=== PATIENT | female | born 1995 | race Caucasian/White ===

== ENCOUNTER 2021-06-23 12:00 | Observation (INO) | payer MEDICARE, MEDICAID ==
[2021-06-23] VITALS (9 sets, daily range): BP systolic 95–159; BP diastolic 73–91; PULSE 74–98; TEMP 98.3–98.6
[~2021-06-23] VITALS: Ht 154.9 cm; Wt 117.3 kg
[2021-06-23] MEDS ORDERED: PRIL40 PO (12:24)
[2021-06-23] MEDS ORDERED: LEVOTHYROXIN (12:24)
[2021-06-23] MEDS ORDERED: INDERAL 20MG20 MG PO (12:24)
[2021-06-23] MEDS ORDERED: WELLBUTRIN SR100 M1 PO (12:24)
[2021-06-23] MEDS ORDERED: AMBIEN 10MG10 MG PO (12:25)
[2021-06-23] MEDS ORDERED: ATARAX50 MG PO (12:25)
[2021-06-23] MEDS ORDERED: PROAIR HFA0.09 MG/AC IH (12:33)
--- NOTE | 2021-06-23 13:00 | NUR ---
Patient arrived to room 350 with family. Alert and oriented x 3. Patient oriented to room. Initial and assessment complete. Patient denies pain at this time. IV started to right hand x2 attempts. Patient tolerated well. Denies further needs at this time.
--- NOTE | 2021-06-23 19:15 | NUR ---
PT TO ROOM 222 FROM PACU VIA BED. FAMILY AT BEDSIDE. PT ALERT AND ORIENTED X4, DROWSY FROM ANESTHESIA. POST OF VS STRATED. ASSESSMENT COMPLETED AND PLAN OF CARE EXPLAINED TO PT. 2035: CALLED FOR NEW ORDERS. SEE PHYSICAN NOTIFICATION. 2053: CALLED FOR ERCP ORDERS. SEE PHYSICAN NOTIFICATION. PT UNDATED ON PLAN OF CARE AND PROCEDURE TOMORROW AT 1230 WITH . QUESTIONS ANSWERED. 0150: AT BEDSIDE TO ASSESS PT. NO NEW ORDERS AT THIS TIME
[2021-06-24] VITALS (11 sets, daily range): BP systolic 116–134; BP diastolic 60–89; PULSE 78–800; TEMP 97.6–99
[2021-06-24] MEDS ORDERED: MOTRIN 600600 MG/TAB PO (01:11)
[2021-06-24] MEDS ORDERED: NORCO 325 MG-51 TAB PO (01:11)
[2021-06-24] MEDS ORDERED: CIPRO 500MG TA500 MG PO (02:06)
[2021-06-24] MEDS ORDERED: FLAGYL500 MG PO (02:06)
[2021-06-24 07:02] LABS: BASO % 0.2 % (0.0-2.0); GRAN # 12.7 (1.4-6.5); GRAN % 84.7 % (42.2-75.2); LYMPH # 1.5 (1.2-3.4); LYMPH % 10.3 % (20.0-51.0); MEAN CELL VOLUME 87 fl (80.0-100.0); MEAN CORPUSCULAR HEMOGLOBIN 29 pg (27.0-31.0); MEAN CORPUSCULAR HGB CONC 33 g/dl (33.0-37.0); MEAN PLATELET VOLUME 9.6 fl (7.4-10.4); MONO # 0.7 (0.1-0.6); MONO % 4.5 % (1.7-9.3); PLATELET COUNT 350 K/mm3 (130-400); RED BLOOD COUNT 4.19 M/mm3 (4.10-5.30); REDCELL DISTRIBUTION WIDTH-CV 13.1 % (11.5-14.5)
[2021-06-24 07:05] LABS: HEMATOCRIT 36.3 % (37.0-47.0)
[2021-06-24 07:15] LABS: ALBUMIN 3.5 gm/dL (3.5-5.0); BILIRUBIN,TOTAL 0.8 mg/dL (0.0-1.0); CALCIUM 8.4 mg/dL (8.4-10.2); CREATININE, serum 0.55 (0.52-1.25); POTASSIUM 4.3 mmol/L (3.4-5.0); TOTAL PROTEIN 6.8 gm/dL (6.4-8.2)
--- NOTE | 2021-06-24 14:08 | NUR ---
STEVEN SALINAS FROM [facility] CAME TO GET PT. PT. IN STABLE CONDITION WHEN LEFT. WILL WAIT FOR RETURN
--- NOTE | 2021-06-24 15:22 | NUR ---
RECEIVED PT. BACK FROM STEVEN SALINAS FROM [facility] AT 1455. PT. IN STABLE CONDITION BUT CRYING DUE TO PAIN. PAIN MEDICATION GIVEN (SEE EMAR). PT. NOW RESTING IN BED. WILL MONITOR PT. PER PROTOCOL THEN GIVE DR. OCONNELL A CALL FOR FURTHER INSTRUCTIONS
--- NOTE | 2021-06-24 15:49 | NUR ---
PT. IS STABLE WITH NO COMPLAINTS. RATING PAIN AT 2 OUT OF 10. PT. GIVEN WATER AND ORANGE JELLO TO START SLOWLY PROGRESSING FOOD. WILL CONTINUE TO MONITOR
--- NOTE | 2021-06-24 16:12 | NUR ---
CALLED [facility] TO SCHEDULE [address] FO[address] UP WITH DR. OCONNELL. APPOINTMENT SCHEDULED FOR Jun. WILL INFORM PT. THAT SHE CAN CALL TO RESCHEDULE IF NEED BE
--- NOTE | 2021-06-24 17:38 | NUR ---
1720: PT. DISCHARGED PER DR. OCONNELL. NO COMPLAINTS OR QUESTIONS. WENT OVER DISCHARGE INSTRUCTIONS AND PT. HAD NO QUESTIONS. STATES UNDERSTANDING. THIS RN WHEELED PT. OUT AND ASSISTED INTO CAR IN STABLE CONDITION. INFORMED PT. TO CALL DOCTOR WITH ANY QUESTIONS
[2021-07-01] MEDS ORDERED: NORCO 325 MG-51 TAB PO (10:18)
== END 2021-06-24 17:20 | disposition home or self-care (01) ==
LOC: SURG 12:00 → OB 12:00
PROVIDERS: ADMIT Surgery
DX: K80.10 Calculus of gallbladder with chronic cholecystitis without obstruction (principal); K80.50 Calculus of bile duct without cholangitis or cholecystitis without obstruction; J45.909 Unspecified asthma, uncomplicated; E28.2 Polycystic ovarian syndrome; E66.9 Obesity, unspecified; D64.9 Anemia, unspecified; K21.9 Gastro-esophageal reflux disease without esophagitis; F17.210 Nicotine dependence, cigarettes, uncomplicated; F41.9 Anxiety disorder, unspecified; F43.10 Post-traumatic stress disorder, unspecified; F32.9 Major depressive disorder, single episode, unspecified; Z20.822 Contact with and (suspected) exposure to COVID-19; Z79.84 Long term (current) use of oral hypoglycemic drugs; Z79.890 Hormone replacement therapy; Z79.899 Other long term (current) drug therapy
CPT/HCPCS: C1769; J0330; J0744; J1100; J1170; J2405; J2704; J3010; J7030; J7120; Q9967